=== PATIENT | female | born 1990 | race Caucasian/White ===

== ENCOUNTER 2017-12-01 16:55 | Observation (INO) | payer MEDICAID, MEDICARE, OTHER ==
[~2017-12-01] VITALS: Ht 157.5 cm; Wt 72.6 kg
[~2017-12-01 16:55] MED LIST: PREN-385 PO
[2017-12-01 18:00] VITALS: BP 115/70
== END 2017-12-01 21:20 | disposition home or self-care (01) ==
LOC: MLD 16:55
PROVIDERS: ADMIT Obstetrics & Gynecology; ATTEND Obstetrics & Gynecology
DX: O42.913 Preterm premature rupture of membranes, unspecified as to length of time between rupture and onset of labor, third trimester (principal); Z3A.28 28 weeks gestation of pregnancy
CPT/HCPCS: 76805; 81000; G0378; Q0092

== ENCOUNTER 2017-12-13 05:00 | Emergency (ER) | payer MEDICARE ==
[~2017-12-13] VITALS: Ht 157.5 cm; Wt 73.5 kg
[2017-12-13 05:10] VITALS: BP 127/72
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
[2017-12-13] MEDS ORDERED: ACETAMINOPHEN EXTRA STRENGTH 500 MG TAB PO ONE (06:00)
--- NOTE | 2017-12-13 06:00 | NUR ---
CALLED RADIOLOGY FOR US, YANE STATES " THEY WILL GET HERE AT 0630"
--- NOTE | 2017-12-13 06:00 | NUR ---
Colby saul in [place] - 12/13/17 at 0717 by BRUCE CALLED RADIOLOGY FOR CT, YANE STATES " THEY WILL GET HERE AT 0630"
--- NOTE | 2017-12-13 06:30 | NUR ---
Patient appears to be resting comfortably in bed. Vital Signs within normal limits. Respirations even and unlabored.denies any pain at this time
--- NOTE | 2017-12-13 06:40 | NUR ---
CALLED RADIOLOGY FOR US, STATES " SHE WILL BE RIGHT THERE"
--- NOTE | 2017-12-13 07:14 | NUR ---
ultrasound at bedside.
--- NOTE | 2017-12-13 07:15 | NUR ---
Pt report given to ANGELA FLORES. Transfer of care at this time.
--- NOTE | 2017-12-13 07:25 | NUR ---
patient observed to be sitting on the bed. patient is alert and oriented x 4. respirations are even and unlabored. lung sounds clear to all lung rosas. patient denies any cough, dyspnea, n,v,d, or pain at this moment. will continue to monitor.
--- NOTE | 2017-12-13 07:41 | NUR ---
PT VERBALIZED I JUST WANT TO GO HOME ASKED IF SHE WANTS TO GO TO A PRISON CLAIMED I JUST WANT TO GO HOME, CALL PLACE TO [phone], LEAVE A MESSAGE TO CALL US BACK, WILL ENDORSED
--- NOTE | 2017-12-13 08:11 | NUR ---
Endorsed to volodymyr, social work specialist is coming to talk to the pt, maxi rn case management will follow up with the social work specialist.
--- NOTE | 2017-12-13 09:43 | NUR ---
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 ER MD DR. MALONE NOTIFIED.
[2017-12-13 09:44] VITALS: BP 127/72
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
== END 2017-12-13 09:44 | disposition left against medical advice (07) ==
LOC: MED 05:00
DX: O9A.313 Physical abuse complicating pregnancy, third trimester (principal); Z3A.30 30 weeks gestation of pregnancy
CPT/HCPCS: 76805; 99284; Q0092; 81002; 81025

== ENCOUNTER 2018-07-11 12:26 | Emergency (ER) | payer MEDICARE ==
[~2018-07-11] VITALS: Ht 157.5 cm; Wt 68.0 kg
[2018-07-11 11:41] VITALS: BP 102/65
[2018-07-11 12:33] VITALS: BP 99/68
--- NOTE | 2018-07-11 12:40 | NUR ---
28/F SEEN IN L&D TODAY. SENT TO ER FOR FURTHER EVAL C/O RIGHT ABD PAIN RADIATING TO RIGHT BACK CONSTANT CRAMPING TYPE PAIN X 4 DAYS. DENIES INJURY, DENIES VAGINAL DC/BLEEDING.+N/V LAST BM YESTERDAY WITH STRAINING. A1 LIVE 02/05/2018. SKIN IS PINK/WARM/DRY. LUNGS CLEAR BL; HR EVEN AND REGULAR; PT DENIES ANY FEVER, CP, SOB, OR COUGH AT THIS TIME; PATIENT STATES PAIN OF 5 /10 AT THIS TIME; VSS; PATIENT POSITIONED FOR COMFORT; HOB ELEVATED; BEDRAILS UP X2; BED DOWN. ER MD MADE AWARE OF PT STATUS.
--- NOTE | 2018-07-11 13:01 | NUR ---
PT REFUSED IV INSERTED AT THIS TIME.
[2018-07-11 13:18] LABS: BARBITURATE, URINE NEG. ng/ml (NEG <=200); BENZODIAZEPINE, URINE NEG. ng/mL (NEG <=200); CANNABINOID, URINE POS. ng/mL (NEG <=50); COCAINE, URINE NEG. ng/mL (NEG <=300); OPIATE, URINE NEG. ng/mL (NEG <=2000); PHENCYCLIDINE SCREEN,URINE NEG. ng/mL (NEG <=25)
[2018-07-11] MEDS ORDERED: ACETAMINOPHEN EXTRA STRENGTH 500 MG TAB PO ONE (13:55)
[2018-07-11] MEDS ORDERED: METOCLOPRAMIDE 10 MG TAB PO ONE (13:55)
[2018-07-11 14:21] LABS: BASOPHILS % (AUTO) 0.4 % (0.0-2.0); EOSINOPHILS # (AUTO) 0.1 K/uL (0-0.4); HEMATOCRIT 33.7 % (36-48); HEMOGLOBIN 11.1 g/dL (12.0-16.0); LYMPHOCYTES # (AUTO) 2.4 K/uL (2.5-16.5); LYMPHOCYTES % (AUTO) 21.8 % (20.5-51.1); MEAN CORPUSCULAR HEMOGLOBIN 29 pg (27-31); MEAN CORPUSCULAR HGB CONC 33 g/dL (33-37); MEAN CORPUSCULAR VOLUME 87.3 fL (80-94); MONOCYTES # (AUTO) 0.6 K/uL (0.8-1.0); MONOCYTES % (AUTO) 5.2 % (1.7-9.3); NEUTROPHILS # (AUTO) 7.8 K/uL (1.8-7.7); NEUTROPHILS % (AUTO) 71.6 % (42.2-75.2); PLATELET COUNT (AUTO) 312 K/uL (140-450); RED BLOOD CELL COUNT(AUTO) 3.86 MIL/uL (4.20-5.40); RED CELL DISTRIBUTION WIDTH 14.5 % (11.6-13.7); WHITE BLOOD COUNT (AUTO) 10.8 K/uL (4.8-10.8)
[2018-07-11 14:50] LABS: CARBON DIOXIDE 24.4 mmol/L (21-32); CREATININE 0.4 mg/dL (0.6-1.3); POTASSIUM 3.4 mmol/L (3.5-5.1)
--- NOTE | 2018-07-11 14:54 | NUR ---
Patient appears to be resting comfortably in bed. Vital Signs within normal limits. Respirations even and unlabored.WILL CONTINUE TO MONITOR.
[2018-07-11 14:56] LABS: ALBUMIN 2.5 g/dL (3.4-5.0); TOTAL BILIRUBIN 0.1 mg/dL (0.0-1.0)
--- NOTE | 2018-07-11 16:21 | NUR ---
FOOD GIVEN AT THIS TIME. PT ATE 100%. DENIES N/V OR ABDOMINAL PAIN.V/S NORMAL. WILL CONTINUE TO MONITOR.
[2018-07-11 17:44] LABS: APPEARANCE,URINE SL CLOUDY (CLEAR); BILIRUBIN,URINE NEGATIVE (NEGATIVE); BLOOD, URINE NEGATIVE (NEGATIVE); COLOR,URINE YELLOW (YELLOW); LEUKOCYTE ESTERASE ,URINE NEGATIVE (NEGATIVE); NITRITE, URINE POSITIVE (NEGATIVE); UGLUCOSE NEGATIVE (NEGATIVE)
[2018-07-11 17:55] LABS: RBC,URINE 0-5 (RARE) /HPF (0-5)
[2018-07-11] MEDS ORDERED: cefTRIAXone 1,000 MG in LIDOCAINE MPF 1% - 5 mL VIAL 2.1 ML IM ONE (18:10)
--- NOTE | 2018-07-11 18:27 | NUR ---
Patient discharged with v/s stable. Written and verbal after care instructions given and explained. Patient alert, oriented and verbalized understanding of instructions. Ambulatory with steady gait. All questions addressed prior to discharge. ID band removed. Patient advised to follow up with PMD. Rx of tylenol/keflex/reglan given. Patient educated on indication of medication including possible reaction and side effects. Opportunity to ask questions provided and answered.
[2018-07-11 18:33] VITALS: BP 106/51
--- NOTE | 2018-07-11 18:33 | NUR ---
Patient discharged with v/s stable. Written and verbal after care instructions given and explained. Patient alert, oriented and verbalized understanding of instructions. Ambulatory with steady gait. All questions addressed prior to discharge. ID band removed. Patient advised to follow up with PMD. Rx of TYLENOL, KEFLEX & REGLAND given. Patient educated on indication of medication including possible reaction and side effects. Opportunity to ask questions provided and answered.
== END 2018-07-11 18:33 | disposition home or self-care (01) ==
LOC: EDSTATUS 12:26 → MED 12:26
DX: O26.611 Liver and biliary tract disorders in pregnancy, first trimester (principal); K80.50 Calculus of bile duct without cholangitis or cholecystitis without obstruction; O23.41 Unspecified infection of urinary tract in pregnancy, first trimester; Z3A.13 13 weeks gestation of pregnancy
CPT/HCPCS: 36415; 76700; 76805; 80053; 80305; 81001; 83690; 85025; 87086; 96372; 99285; J0696; J2001; J8597; Q0092; 87186